=== PATIENT | male | born 1940 ===

== ENCOUNTER → 2017-04-04 | Outpatient (CLI) | payer MEDICARE ==
[2017-04-04 11:02] LABS: HEMATOCRIT 31.4 % (39.0-53.0); HEMOGLOBIN 10.3 g/dL (13.0-17.5)
[2017-04-04 11:20] LABS: ALBUMIN 3.9 g/dL (3.4-5.0); CALCIUM 8.8 mg/dL (8.5-10.1); CREATININE 2.9 mg/dL (0.7-1.3); GFR 21.3; PHOSPHORUS 4.7 mg/dL (2.6-4.7); POTASSIUM 4.1 mmol/L (3.5-5.1)
== END | disposition home or self-care (01) ==
LOC: SPEC 10:41
PROVIDERS: ATTEND Internal Medicine Nephrology
DX: I11.0 Hypertensive heart disease with heart failure (principal); I50.9 Heart failure, unspecified; I48.0 Paroxysmal atrial fibrillation; Z79.01 Long term (current) use of anticoagulants
CPT/HCPCS: 36415; 80069; 85014; 85018

== ENCOUNTER → 2017-04-07 | Outpatient (CLI) | payer MEDICARE ==
[2017-04-07 09:32] LABS: HEMATOCRIT 30.3 % (39.0-53.0); HEMOGLOBIN 9.9 g/dL (13.0-17.5)
[2017-04-07 09:48] LABS: ALBUMIN 3.5 g/dL (3.4-5.0); CALCIUM 8.9 mg/dL (8.5-10.1); CREATININE 2.5 mg/dL (0.7-1.3); GFR 25.2; PHOSPHORUS 3.3 mg/dL (2.6-4.7); POTASSIUM 3.7 mmol/L (3.5-5.1)
== END | disposition home or self-care (01) ==
LOC: SPEC 09:23
PROVIDERS: ATTEND Internal Medicine Nephrology
DX: I11.0 Hypertensive heart disease with heart failure (principal); I50.9 Heart failure, unspecified; I48.0 Paroxysmal atrial fibrillation; Z79.01 Long term (current) use of anticoagulants
CPT/HCPCS: 36415; 80069; 85014; 85018